=== PATIENT | male | born 1955 | race Caucasian/White ===

== ENCOUNTER 2020-05-25 15:24 | Emergency (ER) | payer MEDICARE, OTHER ==
[2020-05-25] MEDS ORDERED: Iopamidol 370 76% 100 ML VIAL IV ONE (15:25)
[2020-05-25 16:06] LABS: Band 3 % (5-11); Hemoglobin 16.3 g/dL (14.0-18.0); Lymphocytes 3 % (21-51); MDiff Complete? YES; Mean Corpuscular HGB CONC 30.6 g/dL (32.0-36.0); Mean Corpuscular Hemoglobin 29.4 pg (27.0-31.0); Mean Corpuscular Volume 96.2 fL (78.0-98.0); Monocytes 2 % (0-10); Neutrophil 89 % (42-75); Platelet Count 357 thou/uL (130-400); Platelet Morphology Comment Appears Adequate; RBC Distribution Width 13.9 % (11.5-14.5); RBC Morphology Normal; Reactive Lymphocytes 3 % (0-10); Red Blood Cell (RBC) Count 5.55 mill/uL (4.70-6.10); White Blood Cell (WBC) Count 23.1 thou/uL (4.8-10.8)
[2020-05-25 16:11] LABS: ALT (SGPT) 69 U/L (8-55); AST (SGOT) 75 U/L (5-34); Albumin 4.1 g/dL (3.4-4.8); Alkaline Phosphatase 133 U/L (40-110); Anion Gap 18 mmol/L (10-20); BUN (Urea Nitrogen) 13 mg/dL (8.4-25.7); Bilirubin, Total 0.9 mg/dL (0.2-1.2); Calc. Creatinine Clearance 0 mL/min (70-130); Calcium 9.5 mg/dL (7.8-10.44); Carbon Dioxide 26 mmol/L (23-31); Chloride 105 mmol/L (98-107); Estimated GFR-MDRD 60; Globulin 3.7 g/dL (2.4-3.5); Glucose 159 mg/dL (80-115); Potassium 4.5 mmol/L (3.5-5.1); Protein, Total 7.8 g/dL (5.8-8.1); Sodium 144 mmol/L (136-145)
--- NOTE | 2020-05-25 16:29 | CT ---
CT head noncontrast HISTORY: Fall. Injury. FINDINGS: There is no evidence of acute intracranial hemorrhage or infarct. The ventricles appear nor mal in size, shape and position. There is no mass effect or shift of midline structures. Visualized paranasal sinuses remain well aerated. IMPRESSION : No acute intracranial abnormalities are demonstrated.
--- NOTE | 2020-05-25 16:34 | CT ---
CT CERVICAL SPINE PERFORMED WITHOUT CONTRAST ENHANCEMENT: Date: 05/25/2020 HISTORY: Neck pain status post fall. FINDINGS: Vertebral bodies are normal in height. Severe disc narrowing is seen at C5-6. The facets are in milind l alignment. There is no evidence of fracture. No canal stenosis. Some borderline left-sided foramina l narrowing at C2-3 and C3-4, and moderate foraminal narrowing at C5-6 on the left. There is no CT ev idence for fracture. Lung apices show some parenchymal change which could be on the basis of an atele ctatic-type process. IMPRESSION: No CT evidence of fracture of the cervical spine. POS: FROILAN
--- NOTE | 2020-05-25 16:48 | CT ---
CT chest with IV contrast CT abdomen and pelvis with contrast CT thoracic spine noncontrast CT lumbar spine noncontrast HISTORY: Fall. Chest injury. Abdomen injury. Back injury. FINDINGS: Tiny amount of gas within the right anterior pleural space with minimal right pleural fluid . Minimal atelectasis at the right lung base. Moderately displaced fracture of the posterolateral aspect of right rib 7 with small amount of gas in the immediately adjacent deep chest wall soft tissues. Minimally displaced fracture of the lateral aspect of right rib 4. Scattered areas of minimal scarring throughout the lungs. No mediastinal hematoma. Calcification with in the arterial structures including coronary arteries. Right renal cysts measuring up to 2.6 cm. No free air or free fluid within the abdomen. No evidence o f bowel obstruction or inflammation. Abdominal fat protrudes into an umbilical and left inguinal hernias. Urinary bladder is intact. Vertebral body heights and alignment of the thoracolumbar spine are maintained. Osteophytosis and sca ttered degenerative changes. No acute fracture or dislocation evident. IMPRESSION : Right ribs 4 and 7 fractures with minimal right pneumothorax. Atherosclerosis. Other incidental-type findings as detailed above. Findings were called to Dr. Marin at the [place] emergency department at 1635 hours. Code CR.
[2020-05-25] MEDS ORDERED: Ondansetron PF 4 MG/2 ML Vial ONE (17:22)
[2020-05-25] MEDS ORDERED: Morphine 4 MG/ML VIAL ONE ×2 (17:22→18:19)
[2020-05-25] MEDS ORDERED: Sodium Chloride 0.9% 1,000 ML ONE (17:22)
== END 2020-05-25 18:27 | disposition short-term general hospital (02) ==
LOC: MADERS 15:24
DX: S22.41XA Multiple fractures of ribs, right side, initial encounter for closed fracture (principal); S27.0XXA Traumatic pneumothorax, initial encounter; W11.XXXA Fall on and from ladder, initial encounter
CPT/HCPCS: 36415; 70450; 71260; 72125; 74177; 80053; 85025; 94760; 96361; 96374; 96375; 96376; J2270; J2405; J7050; Q9967